=== PATIENT | female | born 1935 | race Caucasian/White ===

== ENCOUNTER → 2017-12-17 | Outpatient (REF) | payer BC, MEDICARE ==
[2017-12-17 13:34] LABS: FOLATE 14.1 NG/ML; VITAMIN B12 LEVEL 406 PG/ML
== END ==
LOC: M LAB REF 12:31
DX: D72.819 Decreased white blood cell count, unspecified (principal)
CPT/HCPCS: 82746

== ENCOUNTER → 2020-09-24 | Outpatient (CLI) | payer SELFPAY ==
[~2020-09-24] MED LIST: CALCTAB93; IBUP600T; THERGRAN; VICO5TAB
== END ==
LOC: M LABSMTC 08:19
PROVIDERS: ATTEND Pediatrics
DX: Z20.828 Contact with and (suspected) exposure to other viral communicable diseases (principal)

== ENCOUNTER → 2020-12-02 | Outpatient (REF) | payer MEDICARE ==
[2020-12-02 17:41] LABS: URIC ACID 3.6 MG/DL (2.6-6.0)
== END ==
LOC: M LAB REF 16:54
PROVIDERS: ATTEND Nurse Practitioner Adult Health
DX: R11.0 Nausea (principal); R10.84 Generalized abdominal pain; M10.9 Gout, unspecified

== ENCOUNTER → 2021-04-25 | Outpatient (REF) | payer MEDICARE | LOC: M LAB REF 09:09 | PROVIDERS: ATTEND Dermatology | DX: L57.0 Actinic keratosis (principal); L57.8 Other skin changes due to chronic exposure to nonionizing radiation ==

== ENCOUNTER → 2022-03-23 | Outpatient (CLI) | payer MEDICARE | LOC: M WUC 08:58 | PROVIDERS: ATTEND Internal Medicine | DX: R06.00 Dyspnea, unspecified (principal) ==

== ENCOUNTER → 2023-06-28 | Outpatient (CLI) | payer MEDICARE | LOC: M RAD 11:00 | PROVIDERS: ATTEND Internal Medicine | DX: E07.9 Disorder of thyroid, unspecified (principal) ==

== ENCOUNTER → 2023-10-09 | Outpatient (REF) | payer MEDICARE | LOC: M LAB REF 12:01 | PROVIDERS: ATTEND Internal Medicine | DX: N39.0 Urinary tract infection, site not specified (principal) ==

== ENCOUNTER → 2024-08-12 | Outpatient (CLI) | payer MEDICARE | LOC: M RAD 10:56 | PROVIDERS: ATTEND Surgery | DX: E04.1 Nontoxic single thyroid nodule (principal) ==